=== PATIENT | male | born 1945 | race Caucasian/White ===

== ENCOUNTER 2018-06-23 08:33 | Outpatient (CLI) | payer MEDICARE, OTHER ==
--- NOTE | 2018-06-23 10:40 | CT ---
CTA ABDOMEN AND PELVIS WITH AND WITHOUT CONTRAST: HISTORY: Abnormal ultrasound in Dr. Zuniga's office. CT performed one year ago is showing an abdominal aortic aneurysm. COMPARISON: None. TECHNIQUE: Multiple contiguous axial images were obtained in a CTA of the abdomen and pelvis with and without IV contrast, and 3D sagittal and coronal MIP reformats were performed. FINDINGS: The liver, gallbladder, kidneys, adrenal glands, spleen, and pancreas are unremarkable. No free air, free fluid, or standing changes are seen in the abdomen or pelvis. Scattered diverticula are seen in the colon. The small bowel is unremarkable. No abdominal or pelvi c lymphadenopathy is seen. Atherosclerotic disease is seen in the aorta. There is aneurysmal dilatation of the infrarenal aorta . This measures 5.1 cm in maximum dimension and contains a moderate amount of mural thrombus. The c eliac trunk, SMA, and SAIGE are patent, without significant focal atherosclerotic disease. A single re nal artery is seen on each side without significant focal atherosclerotic disease. There is mild ect emir of the left common iliac artery, medially, at its take-off, measuring 2.2 cm in greatest dimensi on. No enlargement of the right common iliac artery is seen. Moderate diffuse atherosclerotic disea se is seen in the common iliac arteries, internal iliac arteries, and external iliac arteries. The visualized lung bases and abdominal wall soft tissues are unremarkable. Degenerative changes are seen in the spine. IMPRESSION: 1. Abdominal aortic aneurysm, as above. 2. Diverticulosis. POS: JOSE
== END 2018-06-23 08:34 | disposition home or self-care (01) ==
LOC: CT 08:33
PROVIDERS: ATTEND Thoracic Surgery (Cardiothoracic Vascular Surgery)
DX: I71.4 Abdominal aortic aneurysm, without rupture (principal); K57.90 Diverticulosis of intestine, part unspecified, without perforation or abscess without bleeding
CPT/HCPCS: 74174; 82565

== ENCOUNTER 2018-07-25 00:13 | Outpatient (CLI) | payer MEDICARE, OTHER ==
[2018-07-25 13:06] LABS: #Eosinphils 0.4 thou/uL (0.0-0.7); #Lymphocytes 1.6 thou/uL (1.20-3.40); #Monocytes 0.7 thou/uL (0.11-0.59); #Neutrophils 4.8 thou/uL (1.40-6.50); %Basophils 0.7 % (0.0-1.0); %Lymphocytes 21.7 % (21.0-51.0); %Monocytes 9.1 % (0.0-10.0); %Neutrophils 63.5 % (42.0-75.0); Hemoglobin 14.4 g/dL (14.0-18.0); Mean Corpuscular HGB CONC 32.5 g/dL (32.0-36.0); Mean Corpuscular Hemoglobin 29.9 pg (27.0-31.0); Mean Corpuscular Volume 92.1 fL (78.0-98.0); Mean Platelet Volume 7.9 fL (7.4-10.4); Platelet Count 164 thou/uL (130-400); RBC Distribution Width 12.6 % (11.5-14.5); Red Blood Cell (RBC) Count 4.83 mill/uL (4.70-6.10); White Blood Cell (WBC) Count 7.5 thou/uL (4.8-10.8)
[2018-07-25 13:19] LABS: Anion Gap 12 mmol/L (10-20); BUN (Urea Nitrogen) 18 mg/dL (8.4-25.7); Calc. Creatinine Clearance 0 mL/min (70-130); Calcium 9.9 mg/dL (7.8-10.44); Carbon Dioxide 26 mmol/L (23-31); Chloride 110 mmol/L (98-107); Estimated GFR-MDRD 47; Glucose 86 mg/dL (83-110); Potassium 4.2 mmol/L (3.5-5.1); Sodium 144 mmol/L (136-145)
--- NOTE | 2018-07-26 22:59 | EKG ---
Test Reason : Blood Pressure : / mmHG Vent. Rate : 074 BPM Atrial Rate : 074 BPM P-R Int : 194 ms QRS Dur : 076 ms QT Int : 384 ms P-R-T Axes : 059 -10 038 degrees QTc Int : 426 ms Normal sinus rhythm Normal ECG When compared with ECG of 17-APR-2011 13:27, No significant change was found Confirmed by KAYLI SHRESTHA ([id number]) on 07/26/2018 10:58:28 PM Referred By: ELIZABETH Confirmed By:KAYLI SHRESTHA
== END 2018-07-25 00:14 | disposition home or self-care (01) ==
LOC: LABBT 00:13
PROVIDERS: ATTEND Thoracic Surgery (Cardiothoracic Vascular Surgery)
DX: Z01.818 Encounter for other preprocedural examination (principal); I71.4 Abdominal aortic aneurysm, without rupture
CPT/HCPCS: 80048; 85025; 93005; 93010

== ENCOUNTER 2018-07-25 11:00 | Inpatient (IN) | payer MEDICARE, OTHER ==
[2018-07-26] MEDS ORDERED: Heparin 10,000 UNITS/1 ML VIAL ONE ×2 (06:31→08:57)
[2018-07-26] MEDS ORDERED: Fentanyl 250 MCG/5 ML VIAL ONE (06:48)
[2018-07-26] MEDS ORDERED: Midazolam HCl 2 mg/2 ml Vial ONE (07:03)
[2018-07-26] MEDS ORDERED: Protamine Sulfate 250 MG/25 ML VIAL ONE (09:05)
[2018-07-26] MEDS ORDERED: Bupivacaine HCl 0.5%/Epinephrine 1:200,000/PF 30 ml Vial ONE (10:13)
[2018-07-26] MEDS ORDERED: Ondansetron HCl/PF 4 MG/2 ML Vial IVP PRN (10:44)
[2018-07-26] MEDS ORDERED: Promethazine HCl 25 MG/ML VIAL IM PRN (10:44)
[2018-07-26] MEDS ORDERED: Promethazine HCl 25 MG/ML VIAL SLOW IVP PRN (10:44)
[2018-07-26] MEDS ORDERED: Acetaminophen 325 MG TAB PO PRN (11:24)
[2018-07-26] MEDS ORDERED: HYDROcodone/Acetaminophen 5/325 mg Tablet PO PRN (11:24)
[2018-07-26] MEDS ORDERED: Fentanyl 100 MCG/2 ML VIAL SLOW IVP PRN (11:24)
[2018-07-26] MEDS ORDERED: hydrALAZINE 20 MG/ML VIAL SLOW IVP PRN (11:24)
[2018-07-26] MEDS ORDERED: Ondansetron PF 4 MG/2 ML Vial IVP PRN (11:24)
[2018-07-26] MEDS ORDERED: Phenylephrine 10 MG/NS 250 ML 250 ML IVPB PRN (11:24)
--- NOTE | 2018-07-26 12:03 | OP ---
DATE OF PROCEDURE: 07/26/2018 PREOPERATIVE DIAGNOSIS: Abdominal aortic aneurysm involving the left common iliac. POSTOPERATIVE DIAGNOSIS: Abdominal aortic aneurysm involving the left common iliac. PROCEDURE PERFORMED: Endovascular aneurysm repair with an Endurant II system using a main body on the right 145, 28, 20, and a left limb 93, 16, 28. SCIENCE INTERN: Mustapha. CONTRAST: 105. FLUOROSCOPY: 42 minutes 40 seconds. DESCRIPTION OF PROCEDURE: After prepping and draping in the usual fashion, ultrasound-guided puncture of the left common femoral artery was carried out and ProGlides x2 were deployed and a 6-Colombian sheath was then placed. On the right side due to anterior calcification, it was elected not to do a percutaneous approach and an oblique incision was made exposing the common femoral artery just above the profunda takeoff with profunda branches medial and lateral. A pursestring suture was placed in the front of the artery in a presumably soft spot and a needle and wire were then passed and the wire was advanced under fluoroscopic guidance and the guidance of an angled Porfirio catheter. Contra catheter was placed into the aorta and contrast run was obtained to obtain images of the pelvis for coiling of the left hypogastric. Multiple maneuvers were used to try and advance the catheter from the right to the left iliac system. However, despite multiple catheters and wires, this could not be accomplished. Following this, attempts at approaching it from the left femoral puncture site were also availing. After about an hour of trying to access the left hypogastric, it was elected to abandon this and use a flared limb in the left common iliac. Stiff wires were then advanced under catheter control and angiograms obtained from the left side for measurement purposes. Main body was then advanced on the right, deployed about 1.5 cm distal to the renal artery. Following this, the gate was cannulated on the left and after measurements, a limb was then deployed. The right limb was then further deployed completing the main body deployment. Balloons were then used to inflate, following which completion angiography showed a good result with no filling of the aneurysm. There was a large lumbar that did fill on the left inferior aspect of the aorta. ProGlides was used to seal the left common femoral artery and the right common femoral artery was repaired by securing the pursestring suture that had been placed and then placing an additional [id number] Prolene. Following this, heparin was partially reversed. Wounds were closed with Marcaine being infiltrated in the right groin. The patient had a palpable pedal pulse in both feet at the conclusion of the procedure. Job ID: [id number]
[2018-07-26] MEDS: Ipratropium Bromide 2.5 ml Neb NEB SCH ×3 (13:29→23:22)
[2018-07-26] MEDS ORDERED: Vecuronium 10 MG VIAL ONE (13:52)
[2018-07-26] MEDS ORDERED: ePHEDrine 50 MG/ML VIAL ONE (13:52)
[2018-07-26] MEDS ORDERED: Heparin 30,000 units/30 ml VIAL ONE (13:52)
[2018-07-26] MEDS ORDERED: Lidocaine 1% PF 5 ML VIAL ONE (13:52)
[2018-07-26] MEDS ORDERED: PROPOFOL 200 MG/20 ML VIAL ONE (13:52)
[2018-07-26] MEDS ORDERED: PHENYLEPHRINE-NS 100 MCG/ML 10 ML SYRINGE ONE (13:52)
[2018-07-26] MEDS ORDERED: Glycopyrrolate 0.2 MG/ML 5 ML SYRINGE ONE (13:52)
[2018-07-26] MEDS: HYDROcodone/Acetaminophen 5/325 mg Tablet PO PRN ×2 (13:52→19:36)
[2018-07-26] MEDS: CEFAZOLIN 2 GM in Premix Bag 1 BAG IVPB SCH ×2 (13:53→19:36)
[2018-07-26] MEDS: Sodium Chloride 0.9% 1,000 ML IV SCH ×2 (13:57→20:50)
[2018-07-26 18:09] VITALS: BMI 32.7
[2018-07-26] MEDS: Atorvastatin Calcium 40 MG TAB PO SCH (19:36)
[2018-07-26] MEDS ORDERED: LIFITEGRAST EA EYE SCH (21:00)
[2018-07-27] MEDS: HYDROcodone/Acetaminophen 5/325 mg Tablet PO PRN ×3 (02:59→17:47)
[2018-07-27] MEDS: CEFAZOLIN 2 GM in Premix Bag 1 BAG IVPB SCH (03:00)
[2018-07-27 04:46] LABS: #Eosinphils 0.3 thou/uL (0.0-0.7); #Lymphocytes 1.1 thou/uL (1.20-3.40); #Monocytes 0.9 thou/uL (0.11-0.59); #Neutrophils 6.4 thou/uL (1.40-6.50); %Basophils 0.4 % (0.0-1.0); %Lymphocytes 12.2 % (21.0-51.0); %Monocytes 10.9 % (0.0-10.0); %Neutrophils 73.6 % (42.0-75.0); Hemoglobin 11.7 g/dL (14.0-18.0); Mean Corpuscular HGB CONC 32.4 g/dL (32.0-36.0); Mean Corpuscular Hemoglobin 30.1 pg (27.0-31.0); Mean Corpuscular Volume 92.8 fL (78.0-98.0); Mean Platelet Volume 7.8 fL (7.4-10.4); Platelet Count 123 thou/uL (130-400); RBC Distribution Width 12.6 % (11.5-14.5); Red Blood Cell (RBC) Count 3.89 mill/uL (4.70-6.10); White Blood Cell (WBC) Count 8.7 thou/uL (4.8-10.8)
[2018-07-27 05:05] LABS: Anion Gap 10 mmol/L (10-20); BUN (Urea Nitrogen) 20 mg/dL (8.4-25.7); Calc. Creatinine Clearance 59 mL/min (70-130); Calcium 8.4 mg/dL (7.8-10.44); Carbon Dioxide 27 mmol/L (23-31); Chloride 107 mmol/L (98-107); Estimated GFR-MDRD 44; Glucose 107 mg/dL (83-110); Potassium 4.2 mmol/L (3.5-5.1); Sodium 140 mmol/L (136-145)
[2018-07-27] MEDS: Ipratropium Bromide 2.5 ml Neb NEB SCH ×4 (07:40→23:31)
[2018-07-27] MEDS ORDERED: Sodium Chloride 0.9% 500 ML IV SCH (09:00)
[2018-07-27] MEDS: Losartan 25 MG TAB PO SCH (09:23)
[2018-07-27] MEDS: Clopidogrel Bisulfate 75 MG TAB PO SCH (09:23)
[2018-07-27] MEDS: Aspirin Chewable 81 MG TAB PO SCH (09:23)
[2018-07-27] MEDS: Sodium Chloride 0.9% 1,000 ML IV SCH ×2 (17:01→18:43)
[2018-07-27] MEDS: Atorvastatin Calcium 40 MG TAB PO SCH (21:33)
[2018-07-28 04:44] LABS: #Eosinphils 0.3 thou/uL (0.0-0.7); #Lymphocytes 1.1 thou/uL (1.20-3.40); #Neutrophils 5.6 thou/uL (1.40-6.50); %Basophils 0.1 % (0.0-1.0); %Eosinophils 3.5 % (0.0-10.0); %Lymphocytes 13.3 % (21.0-51.0); %Neutrophils 71.1 % (42.0-75.0); Hemoglobin 11.6 g/dL (14.0-18.0); Mean Corpuscular HGB CONC 33.4 g/dL (32.0-36.0); Mean Corpuscular Hemoglobin 30.5 pg (27.0-31.0); Mean Corpuscular Volume 91.5 fL (78.0-98.0); Mean Platelet Volume 7.6 fL (7.4-10.4); Platelet Count 112 thou/uL (130-400); RBC Distribution Width 12.4 % (11.5-14.5); Red Blood Cell (RBC) Count 3.79 mill/uL (4.70-6.10); White Blood Cell (WBC) Count 7.9 thou/uL (4.8-10.8)
[2018-07-28] MEDS: Ipratropium Bromide 2.5 ml Neb NEB SCH (07:31)
[2018-07-28] MEDS ORDERED: Finasteride 5 MG TAB PO SCH (09:00)
[2018-07-28] MEDS ORDERED: Tamsulosin HCl 0.4 MG CAP PO SCH (09:00)
[2018-07-28] MEDS: Clopidogrel Bisulfate 75 MG TAB PO SCH (09:01)
[2018-07-28] MEDS: Losartan 25 MG TAB PO SCH (09:01)
[2018-07-28] MEDS: Sodium Chloride 0.9% 1,000 ML IV SCH (09:01)
[2018-07-28] MEDS: Aspirin Chewable 81 MG TAB PO SCH (09:01)
[2018-07-28 10:18] VITALS: TEMP 99
--- NOTE | 2018-07-28 13:39 | DIS ---
DATE OF ADMISSION: 07/26/2018 DATE OF DISCHARGE: 07/28/2018 This gentleman was admitted on 07/26 where he underwent an endovascular aneurysm repair with two-piece Endurant [employer] system. Preoperative and postoperative creatinines were about 1.5 and hemoglobin decreased from 14 to 11. Postoperatively, he did well, voiding small amounts prior to discharge. He did have a history of prostate enlargement, but stated he took no medications in this regard and did not get up at night to urinate. He will be discharged home to follow up with me in 2 weeks. Discharge and followup instructions were given. Job ID: [id number]
== END 2018-07-28 10:21 | disposition home or self-care (01) | DRG 269 ==
LOC: SURG A 07-26 05:40 → CCU 07-26 12:55
PROVIDERS: ADMIT Thoracic Surgery (Cardiothoracic Vascular Surgery); ATTEND Thoracic Surgery (Cardiothoracic Vascular Surgery)
PROC: 04V03DZ Restriction of Abdominal Aorta with Intraluminal Device, Percutaneous Approach (ICD-10-PCS; principal; 2018-07-26)
DX: I71.4 Abdominal aortic aneurysm, without rupture (principal); Z90.49 Acquired absence of other specified parts of digestive tract
CPT/HCPCS: 36415; 76000; 80048; 85025; 86850; 86900; 86901; 93005; 93010; 94640; C1713; C1725; C1726; C1760; C1762; C1769; C1894; J0670; J0690; J1642; J1644; J2001; J2250; J2704; J2720; J3010; J3490; J7620

== ENCOUNTER 2018-10-03 08:45 | Outpatient (CLI) | payer MEDICARE, OTHER ==
--- NOTE | 2018-10-03 09:59 | CT ---
EXAM: CTA Angio Abd Pelvis W WO Con PROVIDED CLINICAL HISTORY: Abdominal aortic aneurysm repair 6 weeks ago with placement of an abdominal aortic endograft. COMPARISON: 06/23/2018 FINDINGS: There have been interval postsurgical changes involving the abdominal aortic aneurysm with an abdomin al biiliac endograft in place. The aneurysm sac measures 5.2 cm AP x 5 cm transverse with previous measurements of the abdominal aortic aneurysm measuring 5.1 cm AP x 4.8 cm transverse. There are no f indings to suggest an endoleak based on this exam. There is mild atherosclerotic irregularity involving the celiac and superior mesenteric arteries whic h are otherwise patent. Single renal arteries are seen bilaterally with mild atherosclerotic disease involving each renal artery at the origin and proximally. There is severe atherosclerotic irregularity and narrowing involving the origin of the left external iliac artery with moderate to severe narrowing involving the proximal right external iliac artery. Findings were present on prior study. The external iliac arteries and each common femoral artery demo nstrate mild atherosclerotic irregularity without significant focal narrowing. There is severe focal narrowing at the origin of the left profunda femoral artery. Postsurgical changes are present in the right inguinal region. Linear bibasilar densities are seen which may be related to mild scarring and/or atelectasis. Mild scarring involves the anterior aspect inferior pole right kidney. The liver, spleen, pancreas, bilateral adrenal glands, left adrenal gland, and urinary bladder demons trate a normal CT appearance. Colonic diverticulosis is again present. There is a small hiatal hernia. Degenerative changes noted in the spine. IMPRESSION: 1. Postsurgical changes related to endograft repair of an abdominal aortic aneurysm. The aneurysm sac is slightly larger in size when compared to abdominal aortic aneurysm dimensions on study on 06/23/2018 with aneurysm sac dimensions on current study measuring 5.2 cm x 5 cm. There are no finding s to suggest an endoleak on this exam. 2. Atherosclerotic vascular calcifications and plaque as described above. 3. Remainder of the study is unchanged from prior exam aside from interval postsurgical changes right inguinal region.
[2018-10-03] MEDS ORDERED: Iopamidol 370 76% 100 ML VIAL ONE (11:52)
== END 2018-10-03 08:46 | disposition home or self-care (01) ==
LOC: CT 08:45
PROVIDERS: ATTEND Thoracic Surgery (Cardiothoracic Vascular Surgery)
DX: I71.4 Abdominal aortic aneurysm, without rupture (principal); I70.90 Unspecified atherosclerosis; Z98.890 Other specified postprocedural states
CPT/HCPCS: 74174; 82565; Q9967

== ENCOUNTER 2019-11-08 12:22 | Outpatient (CLI) | payer MEDICARE, OTHER ==
--- NOTE | 2019-11-08 13:35 | CT ---
EXAM: CTA Angio Abd Pelvis W WO Con PROVIDED CLINICAL HISTORY: Follow-up abdominal aortic aneurysm post repair. COMPARISON: 10/03/2018 FINDINGS: Again noted are postoperative changes related to endograft repair of an abdominal aortic aneurysm. An eurysm sac measures 4.3 cm transverse x4.1 cm AP with previous measurements of 5 cm x 5.2 cm. Again, there are no findings to suggest an endoleak. The iliac limbs of the graft are patent. Again noted are atherosclerotic calcifications in the abdominal aorta and involving the origins of th e celiac and superior mesenteric arteries which are patent. Single bilateral renal arteries are again seen. Mild atherosclerotic irregularity is seen involving each external iliac artery. There is atherosclero tic narrowing and irregularity involving the origins and proximal bilateral internal carotid arteries similar to prior study. Atherosclerotic calcifications are again seen involving each common femoral artery. Mild chronic bibasilar lung changes are seen. The liver, spleen, pancreas, bilateral adrenal glands, and left kidney demonstrate a normal CT appear ance. Mild scarring is again seen involving the anterior aspect lower pole right kidney. Postoperative changes right inguinal region are again seen. Colonic diverticulosis is present with moderate amount retained fecal material seen throughout the co lilly. There has been no other interval change from prior study. IMPRESSION: 1. Postoperative changes related to endograft repair of an abdominal aortic aneurysm. The aneurysm sa c is smaller in size compared to prior study with greatest dimension of the aneurysm sac measuring 4.3 cm. No endoleak is seen. 2. Scattered atherosclerotic vascular calcifications and plaque within the arterial vessels of the ab domen and pelvis as described above. 3. Constipation and colonic diverticulosis.
[2019-11-08] MEDS ORDERED: Iopamidol-370 76% 500 ML 1 ML ONE (15:21)
== END 2019-11-08 12:23 | disposition home or self-care (01) ==
LOC: BICCT 12:22
PROVIDERS: ATTEND Thoracic Surgery (Cardiothoracic Vascular Surgery)
DX: I71.4 Abdominal aortic aneurysm, without rupture (principal); K59.00 Constipation, unspecified; K57.30 Diverticulosis of large intestine without perforation or abscess without bleeding; I70.90 Unspecified atherosclerosis; Z98.890 Other specified postprocedural states
CPT/HCPCS: 74174; 82565; Q9967